=== PATIENT | male | born 1950 | race Caucasian/White ===

== ENCOUNTER 2024-01-27 12:48 | Outpatient (CLI) | payer OTHER | END 2024-01-27 23:59 | disposition home or self-care (01) | LOC: RAD 12:48 | PROVIDERS: ATTEND Student in an Organized Health Care Education/Training Program | DX: K21.9 Gastro-esophageal reflux disease without esophagitis (principal); K44.9 Diaphragmatic hernia without obstruction or gangrene; R13.10 Dysphagia, unspecified; K57.10 Diverticulosis of small intestine without perforation or abscess without bleeding | CPT/HCPCS: 74220 ==